=== PATIENT | female | born 1955 | race Caucasian/White ===

== ENCOUNTER 2017-04-24 00:03 | Observation (INO) | payer BC ==
[~2017-04-24] VITALS: Ht 165.1 cm; Wt 80.9 kg
[~2017-04-24 00:03] MED LIST: ASPIR-LOW81 MG PO; ATORVASTATIN CA80 MG PO; CLOPIDOGREL75 MG PO; LOPRESSOR25 MG PO; NITROSTAT0.4 MG SL
[2017-04-24 00:39] LABS: HEMOGLOBIN 14.4 G/DL (11.9-15.5); MCH 29.1 PG (29.0-34.0); MCV 91.1 FL (83-99); PLATELET COUNT 346 K/uL (156-360); RBC DIS.WIDTH-CV 13.8 % (11.8-14.6); RBC DIS.WIDTH-SD 46.5 % (39-53); RED BLOOD COUNT 4.94 M/uL (3.80-5.20); WHITE BLOOD COUNT 9.5 K/uL (4.1-10.2)
[2017-04-24 00:47] LABS: CHLORIDE 101 mEq/L (99-109); POTASSIUM 4.2 mEq/L (3.7-5.4); SODIUM 140 mEq/L (136-147)
[2017-04-24 00:49] LABS: GLUCOSE 93 mg/dL (70-99)
[2017-04-24 00:53] LABS: CREATININE 0.8 mg/dL (0.6-1.3); GFR ESTIMATE (CALCULATED) > 59 mL/min/
[2017-04-24 00:54] LABS: UREA NITROGEN (BUN) 12 mg/dL (9-23)
[2017-04-24 01:00] LABS: TROP-I INTERPRETATION NEGATIVE; TROPONIN-I < 0.01 ng/mL (0.0-0.30)
[2017-04-24 02:39] VITALS: BP 116/56
[2017-04-24 02:39] LABS: DIRECT BILIRUBIN 0.6 mg/dL (0.0-0.3)
[2017-04-24 02:45] LABS: D-DIMER ELISA < 150.00 ng/mLDDU (<230)
[2017-04-24 06:37] LABS: TROP-I INTERPRETATION NEGATIVE; TROPONIN-I < 0.01 ng/mL (0.0-0.30)
[2017-04-24 08:07] VITALS: BP 101/62
[2017-04-24 11:11] VITALS: BP 105/56
[2017-04-24 12:16] LABS: TROP-I INTERPRETATION NEGATIVE; TROPONIN-I < 0.01 ng/mL (0.0-0.30)
== END 2017-04-24 13:28 | disposition home or self-care (01) ==
LOC: EME 00:03 → EDOF 01:53 → ENRESERV 01:54 → 5WEST 02:28
PROVIDERS: Emergency Medicine; Nurse Practitioner Adult Health
DX: R07.9 Chest pain, unspecified (principal); I25.10 Atherosclerotic heart disease of native coronary artery without angina pectoris; Z95.5 Presence of coronary angioplasty implant and graft; I25.2 Old myocardial infarction; Z79.82 Long term (current) use of aspirin; R20.0 Anesthesia of skin; R61 Generalized hyperhidrosis; Z86.74 Personal history of sudden cardiac arrest; I10 Essential (primary) hypertension; E78.5 Hyperlipidemia, unspecified; Z87.891 Personal history of nicotine dependence; Z90.49 Acquired absence of other specified parts of digestive tract
CPT/HCPCS: 71046; 80048; 82248; 83880; 84484; 85027; 85379; 87641; 93005; 99281; 99285; G0378